=== PATIENT | male | born 1975 | race Two or more races ===

== ENCOUNTER 2017-12-09 06:34 | Day surgery (SDC) | payer OTHER ==
[~2017-12-09 06:34] MED LIST: COLACE100 MG PO; COZAAR25 MG; INTESTINEX680 MG PO; PERCOCET 5/3251 TAB PO
== END 2017-12-09 11:45 | disposition home or self-care (01) ==
LOC: AMB-ENDOS 06:34
DX: D12.7 Benign neoplasm of rectosigmoid junction (principal); D12.5 Benign neoplasm of sigmoid colon; D12.3 Benign neoplasm of transverse colon

== ENCOUNTER 2018-02-26 17:43 | Emergency (ER) | payer OTHER ==
[~2018-02-26] VITALS: Ht 172.7 cm; Wt 77.1 kg
== END 2018-02-26 22:49 | disposition home or self-care (01) ==
LOC: ER 17:43
DX: L02.31 Cutaneous abscess of buttock (principal); M53.3 Sacrococcygeal disorders, not elsewhere classified; I16.0 Hypertensive urgency; I10 Essential (primary) hypertension

== ENCOUNTER 2018-02-28 11:15 | Emergency (ER) | payer OTHER ==
[~2018-02-28] VITALS: Ht 175.3 cm; Wt 83.9 kg
[2018-02-28] MEDS ORDERED: CIPRO500 MG PO (13:47)
[2018-02-28] MEDS ORDERED: ZYRTEC10 MG PO (13:47)
[2018-02-28] MEDS ORDERED: FLAGYL500MG PO (13:47)
== END 2018-02-28 13:58 | disposition home or self-care (01) ==
LOC: ER 11:15
DX: L27.1 Localized skin eruption due to drugs and medicaments taken internally (principal); T36.0X5A Adverse effect of penicillins, initial encounter

== ENCOUNTER 2018-04-04 05:45 | Day surgery (SDC) | payer OTHER ==
[~2018-04-04 05:45] MED LIST changes: +CIPRO500 MG PO; +FLAGYL500MG PO; +ZYRTEC10 MG PO
[2018-04-04] MEDS ORDERED: PERCOCET 5-3251 EACH PO (08:02)
[2018-04-04] MEDS ORDERED: COLACE100 MG PO (08:02)
== END 2018-04-04 14:45 | disposition home or self-care (01) ==
LOC: CIR.AMB 05:45
DX: K60.3 Anal fistula (principal); K61.39 Other ischiorectal abscess

== ENCOUNTER 2018-10-28 04:05 | Day surgery (SDC) | payer OTHER ==
[~2018-10-28 04:05] MED LIST changes: +PERCOCET 5-3251 EACH PO
[2018-10-28] MEDS ORDERED: PERCOCET 5-3251 EACH PO (08:41)
[2018-10-28] MEDS ORDERED: COLACE100 MG PO (08:41)
== END 2018-10-28 13:50 | disposition home or self-care (01) ==
LOC: CIR.AMB 04:05
DX: K60.3 Anal fistula (principal)

== ENCOUNTER 2019-03-20 05:28 | Day surgery (SDC) | payer OTHER ==
[2019-03-20] MEDS ORDERED: FLAGYL500MG PO (11:27)
[2019-03-20] MEDS ORDERED: MIRALAX17 GM PO (11:27)
[2019-03-20] MEDS ORDERED: INTESTINEX680 M1 PO (11:27)
[2019-03-20] MEDS ORDERED: PERCOCET 5-3251 EACH PO (11:27)
[2019-03-20] MEDS ORDERED: CIPRO500 MG PO (11:27)
== END 2019-03-20 14:20 | disposition home or self-care (01) ==
LOC: CIR.AMB 05:28
DX: K60.3 Anal fistula (principal)